=== PATIENT | male | born 1995 | race Caucasian/White ===

== ENCOUNTER 2017-07-06 15:11 | Emergency (ER) | payer OTHER ==
[2017-07-06 15:24] VITALS: PULSE 100
--- NOTE | 2017-07-06 15:44 | ERPHSYRPT ---
- History of Present Illness Time Seen by Provider: 07/06/17 15:17 Source: patient, family (brother and father) Patient Subjective Stated Complaint: Seizure, witnessed. Father states "at least 10 minutes long." Hx of same. Triage Nursing Assessment: Pt presents to the ED with complaints of seizure like activity per family. Pt states that he does not remember incident. Father states that pt has hx of complaint. Prescribed Keppra but not taking as ordered because he states "it doesn't work." No distress noted, skin pwd. Physician History: CC: Seizure Hx: 21 y/o patient had febrile seizures as a child. About one year ago began having seizures again. PT and family are poor historians but it appears he went to [place] [facility] for seizures about one year ago. Had Rx for keppra. Has not seen any neurologist. Has an insurance card with Dr Nilton villegas but doesn't plan to follow up there. His father plans to follow up with Dr Floyd. Today while sitting at the kitchen table he stiffened up, began making guttoral sounds, and then had shaking general movements with a seizure. Dad kept him from falling. No injury. He has Rx for keppra but apparently has not been taking it. It has not been filled for a while. Brother states he has periodic seizures. He thinks smoking marijuana helps the seizures. Pt did not smoke marijuana today. Unable to work because of the seizures. Pt denies pain. No fall or injury. Allergies/Adverse Reactions: No Known Drug Allergies Allergy (Unverified 07/06/17 15:28) Home Medications: Levetiracetam [Levetiracetam] 750 mg PO BID 07/06/17 [History] Immunizations Up to Date: No - Review of Systems Constitutional: No Fever Eyes: No Vision Changes Respiratory: No Dyspnea Cardiac: No Chest Pain Abdominal/Gastrointestinal: No Abdominal Pain, No Vomiting Musculoskeletal: No Back Pain, No Neck Pain, No Injury Skin: No Rash Neurological: Seizure, No Focal Weakness, No Headache, No Parasthesia All Other Systems: Reviewed and Negative - Past Medical History Pertinent Past Medical History: No Neurological History: Seizures ENT History: No Pertinent History Cardiac History: No Pertinent History Respiratory History: No Pertinent History Endocrine Medical History: No Pertinent History Musculoskeletal History: No Pertinent History GI Medical History: No Pertinent History History: No Pertinent History Psycho-Social History: No Pertinent History Male Reproductive Disorders: No Pertinent History - Past Surgical History Past Surgical History: No Neuro Surgical History: No Pertinent History Cardiac: No Pertinent History Respiratory: No Pertinent History Gastrointestinal: No Pertinent History Genitourinary: No Pertinent History Musculoskeletal: No Pertinent History Male Surgical History: No Pertinent History - Social History Smoking Status: Current every day smoker How long have you smoked: 5 years Exposure to second hand smoke: Yes Drug Use: marijuana Patient Lives Alone: No - Nursing Vital Signs Nursing Vital Signs: Initial Vital Signs Temperature 97.9 F 07/06/17 15:18 Pulse Rate 100 H 07/06/17 15:18 Respiratory Rate 16 07/06/17 15:18 Blood Pressure 138/69 07/06/17 15:18 O2 Sat by Pulse Oximetry 95 07/06/17 15:18 Pain Scale Pain Intensity 0 - Lawanda Coma Scale Best Eye Response ([place]): (4) open spontaneously Best Verbal Response ([place]): (5) oriented Best Motor Response ([place]): (6) obeys commands [place] Total: 15 - Physical Exam General Appearance: alert Eye Exam: bilateral eye: normal inspection, PERRL, EOMI Ears, Nose, Throat Exam: normal ENT inspection, moist mucous membranes Neck Exam: normal inspection, non-tender, supple, No midline tenderness Respiratory: normal breath sounds, lungs clear Cardiovascular: regular rate/rhythm, No murmur Gastrointestinal: soft, No tenderness, No distention Male Genitalia: normal genitalia Extremity Exam: normal inspection, normal range of motion 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, 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 x 3, 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 Exam: normal hearing, normal speech, PERRL Coordination/Gait: normal cerebellar function Motor/Sensory: no motor deficit, no sensory deficit, no pronator drift Skin Exam: warm, dry, No rash SpO2 Interpretation: normal SpO2: 95 Oxygen Delivery: Room Air - Course Nursing assessment & vital signs reviewed: Yes Ordered Tests: Active Orders 24 hr Category Date Time Status Clean Catch Urine Specimen STAT Care 07/06/17 15:34 Active CBC W DIFF Stat Lab 07/06/17 15:40 Completed CK-Creatinine Phosphokinase Stat Lab 07/06/17 16:04 Completed CMP Stat Lab 07/06/17 15:40 Completed CULTURE,URINE Stat Lab 07/06/17 16:15 Received UA W/ MICROSCOPIC Stat Lab 07/06/17 16:15 Completed Urine Triage Profile Stat Lab 07/06/17 16:15 Completed Lab/Rad Data: Laboratory Result Diagrams 07/06/17 15:40 07/06/17 15:40 Laboratory Results 07/06/17 07/06/17 07/06/17 Range/Units 16:15 16:15 16:04 WBC (4.0-10.5) K/mm3 RBC (4.1-5.6) M/mm3 Hgb (12.5-18.0) gm/dl Hct (42-50) % MCV (78-100) fl MCH (26-32) pg MCHC (32-36) g/dl RDW (11.5-14.0) % Plt Count (150-450) K/mm3 MPV (6-9.5) fl Gran % (36.0-66.0) % Eos # (Auto) (0-0.5) Absolute Lymphs (auto) (1.0-4.6) Absolute Monos (auto) (0.0-1.3) Lymphocytes % (24.0-44.0) % Monocytes % (0.0-12.0) % Eosinophils % (0.00-5.0) % Basophils % (0.0-0.4) % Absolute Granulocytes (1.4-6.9) Basophils # (0-0.4) Sodium (137-145) mmol/L Potassium (3.5-5.1) mmol/L Chloride (98-107) mmol/L Carbon Dioxide (22-30) mmol/L Anion Gap (5-15) MEQ/L BUN (9-20) mg/dL Creatinine (0.66-1.25) mg/dL Estimated GFR ML/MIN Glucose (74-106) mg/dL Calcium (8.4-10.2) mg/dL Total Bilirubin (0.2-1.3) mg/dL AST (17-59) U/L ALT (0-50) U/L Alkaline Phosphatase (38-126) U/L Creatine Kinase 113 (55-170) U/L Serum Total Protein (6.3-8.2) g/dL Albumin (3.5-5.0) g/dL Ur Collection Type VOID Urine Color YELLOW (YELLOW) Urine Appearance CLEAR (CLEAR) Urine pH 7.0 (5-6) Ur Specific [place] 1.010 (1.005-1.025) Urine Protein TRACE (Negative) Urine Ketones NEGATIVE (NEGATIVE) Urine Blood NEGATIVE (0-5) Carson/ul Urine Nitrite NEGATIVE (NEGATIVE) Urine Bilirubin NEGATIVE (NEGATIVE) Urine Urobilinogen NORMAL (0-1) mg/dL Ur Leukocyte Esterase TRACE (NEGATIVE) Urine Microscopic WBC 0-2 (0-5) /HPF Ur Epithelial Cells RARE (FEW) /HPF Urine Bacteria RARE (NEGATIVE) /HPF Urine Culture Reflexed YES (NO) Urine Glucose NEGATIVE (NEGATIVE) mg/dL Urine Opiates Level NEGATIVE (NEGATIVE) Ur Methadone NEGATIVE (NEGATIVE) Urine Barbiturates NEGATIVE (NEGATIVE) Ur Phencyclidine (PCP) NEGATIVE (NEGATIVE) Urine Amphetamine NEGATIVE (NEGATIVE) U Benzodiazepine Level NEGATIVE (NEGATIVE) Urine Cocaine NEGATIVE (NEGATIVE) Urine Marijuana (THC) POSITIVE (NEGATIVE) Specimen Received 07/06/17 1615 07/06/17 07/06/17 Range/Units 15:40 15:40 WBC 7.9 (4.0-10.5) K/mm3 RBC 5.23 (4.1-5.6) M/mm3 Hgb 15.8 (12.5-18.0) gm/dl Hct 46.7 (42-50) % MCV 89.3 (78-100) fl MCH 30.2 (26-32) pg MCHC 33.8 (32-36) g/dl RDW 13.3 (11.5-14.0) % Plt Count 153 (150-450) K/mm3 MPV 11.1 H (6-9.5) fl Gran % 84.9 H (36.0-66.0) % Eos # (Auto) 0.09 (0-0.5) Absolute Lymphs (auto) 0.78 L (1.0-4.6) Absolute Monos (auto) 0.30 (0.0-1.3) Lymphocytes % 9.9 L (24.0-44.0) % Monocytes % 3.8 (0.0-12.0) % Eosinophils % 1.1 (0.00-5.0) % Basophils % 0.3 (0.0-0.4) % Absolute Granulocytes 6.69 (1.4-6.9) Basophils # 0.02 (0-0.4) Sodium 142 (137-145) mmol/L Potassium 4.3 (3.5-5.1) mmol/L Chloride 106 (98-107) mmol/L Carbon Dioxide 26 (22-30) mmol/L Anion Gap 14.5 (5-15) MEQ/L BUN 8 L (9-20) mg/dL Creatinine 0.87 (0.66-1.25) mg/dL Estimated GFR > 60.0 ML/MIN Glucose 82 (74-106) mg/dL Calcium 9.4 (8.4-10.2) mg/dL Total Bilirubin 0.80 (0.2-1.3) mg/dL AST 22 (17-59) U/L ALT 22 (0-50) U/L Alkaline Phosphatase 66 (38-126) U/L Creatine Kinase (55-170) U/L Serum Total Protein 7.3 (6.3-8.2) g/dL Albumin 4.6 (3.5-5.0) g/dL Ur Collection Type Urine Color (YELLOW) Urine Appearance (CLEAR) Urine pH (5-6) Ur Specific [place] (1.005-1.025) Urine Protein (Negative) Urine Ketones (NEGATIVE) Urine Blood (0-5) Carson/ul Urine Nitrite (NEGATIVE) Urine Bilirubin (NEGATIVE) Urine Urobilinogen (0-1) mg/dL Ur Leukocyte Esterase (NEGATIVE) Urine Microscopic WBC (0-5) /HPF Ur Epithelial Cells (FEW) /HPF Urine Bacteria (NEGATIVE) /HPF Urine Culture Reflexed (NO) Urine Glucose (NEGATIVE) mg/dL Urine Opiates Level (NEGATIVE) Ur Methadone (NEGATIVE) Urine Barbiturates (NEGATIVE) Ur Phencyclidine (PCP) (NEGATIVE) Urine Amphetamine (NEGATIVE) U Benzodiazepine Level (NEGATIVE) Urine Cocaine (NEGATIVE) Urine Marijuana (THC) (NEGATIVE) Specimen Received - Progress Progress Note: 07/06/17 16:02 Reviewed old records from [place]. In September and October [address] heads wnl, MRI brain wnl, EEG normal. Neuro consultation with Dr Sosa who diagnosed epilepsy with complex partial seizures. He also had IV drug abuse and marijuana abuse listed. 07/06/17 16:59 Nothing abberant on labs. Reviewed labs and old records with pt. He is no longer on keppra and does not want to be. Father called to change primary medicaid to Dr Floyd and they plan to follow up there. Will not restart meds at this time as pt has not been compliant and had normal EEG. He needs neurology follow up. Seizure instructions given. Counseled pt/family regarding: lab results, diagnosis, need for follow-up - Departure Time of Disposition: 17:00 Departure Disposition: Home Clinical Impression: Epileptic seizure Qualifiers: Epilepsy type: unspecified Intractability: not intractable Status epilepticus: without status epilepticus Qualified Code(s): G40.909 - Epilepsy, unspecified, not intractable, without status epilepticus Condition: Stable Critical Care Time: No Referrals: SUSAN FLOYD [Primary Care Provider] - Instructions: Seizures, Adult (DC) Additional Instructions: No driving, climbing, swimming, hot tubs, operating machinery. Follow up with Dr Floyd or primary doctor and arrange neurology follow up to consider other seizure medications. Return for problems or concerns. Stay with family today.
[2017-07-06 15:50] LABS: BASOPHIL % 0.3 % (0.0-0.4); Basophil (Absolute #) 0.02 (0-0.4); Eosinophil % 1.1 % (0.00-5.0); Eosinophil (Absolute #) 0.09 (0-0.5); Granulocyte Absolute (ANC) 6.69 (1.4-6.9); Granulocytes % 84.9 % (36.0-66.0); Hematocrit 46.7 % (42-50); Hemoglobin 15.8 gm/dl (12.5-18.0); Lymphocyte (Absolute #) 0.78 (1.0-4.6); Lymphocytes % 9.9 % (24.0-44.0); Mean Cell Volume 89.3 fl (78-100); Mean Corpuscular Hemoglobin 30.2 pg (26-32); Mean Corpuscular Hgb Concent. 33.8 g/dl (32-36); Mean Platelet Volume 11.1 fl (6-9.5); Monocytes % 3.8 % (0.0-12.0); Platelet Count 153 K/mm3 (150-450); Red Blood Count 5.23 M/mm3 (4.1-5.6); Red Cell Distribution Width 13.3 % (11.5-14.0); White Blood Count 7.9 K/mm3 (4.0-10.5)
[2017-07-06 16:10] VITALS: BP 131/84
[2017-07-06 16:20] LABS: ALBUMIN 4.6 g/dL (3.5-5.0); ALKALINE PHOSPHATASE 66 U/L (38-126); ANION GAP 14.5 MEQ/L (5-15); BLOOD UREA NITROGEN 8 mg/dL (9-20); CHLORIDE 106 mmol/L (98-107); Calcium 9.4 mg/dL (8.4-10.2); Carbon Dioxide 26 mmol/L (22-30); Creatinine 1 0.87 mg/dL (0.66-1.25); Glucose 82 mg/dL (74-106); Potassium 4.3 mmol/L (3.5-5.1); SGOT/AST 22 U/L (17-59); SGPT/ALT 22 U/L (0-50); SODIUM 142 mmol/L (137-145); Total Protein 7.3 g/dL (6.3-8.2)
[2017-07-06 16:29] LABS: Appearance CLEAR (CLEAR); Bilirubin NEGATIVE (NEGATIVE); Blood NEGATIVE Ery/ul (0-5); Glucose NEGATIVE (NEGATIVE); Ketones NEGATIVE (NEGATIVE); Leukocyte Esterase TRACE (NEGATIVE); Nitrite NEGATIVE (NEGATIVE); Protein,Urine Dip TRACE (Negative); Urobilinogen NORMAL mg/dL (0-1)
[2017-07-06 16:30] LABS: Bacteria RARE /HPF (NEGATIVE); Epithelial Cells RARE /HPF (FEW); WBC 0-2 /HPF (0-5)
[2017-07-06 16:39] LABS: Amphetamine,Urine NEGATIVE (NEGATIVE); Barbiturate,Urine NEGATIVE (NEGATIVE); Benzodiazepine,Urine NEGATIVE (NEGATIVE); Cocaine,Urine NEGATIVE (NEGATIVE); Methadone,Urine NEGATIVE (NEGATIVE); Opiate,Urine NEGATIVE (NEGATIVE); PCP,Urine NEGATIVE (NEGATIVE); THC,Urine POSITIVE (NEGATIVE)
[2017-07-06 17:01] VITALS: O2SAT 95
== END 2017-07-06 17:23 | disposition home or self-care (01) ==
LOC: ED 15:11
DX: G40.909 Epilepsy, unspecified, not intractable, without status epilepticus (principal)
CPT/HCPCS: 36415; 80053; 80307; 81000; 82550; 85025; 87086; 99282; 99283

== ENCOUNTER 2022-03-03 09:37 | Emergency (ER) | payer OTHER ==
[2022-03-03] MEDS ORDERED: Keppra 500 MG/5 ML*** 1,000 MG in D5w 100ML Mini Bag 100 ML 100 ML IV ONE (10:08)
[2022-03-03] MEDS ORDERED: Sodium Chloride 0.9% 1000 ML 1,000 ML IV STA (10:09)
[2022-03-03 10:38] LABS: Absolute Neutrophil Ct (ANC) 5.84 x10^3/uL (1.4-6.9); Basophil (Absolute #) 0.05 x10^3/uL (0-0.4); Eosinophil % 1.5 % (0.00-5.0); Eosinophil (Absolute #) 0.12 x10^3/uL (0-0.5); Hematocrit 47.7 % (42-50); Hemoglobin 15.8 g/dL (12.5-18.0); Lymphocyte (Absolute #) 1.24 x10^3/uL (1.0-4.6); Lymphocytes % 15.4 % (24.0-44.0); Mean Cell Volume 91.4 fL (78-100); Mean Corpuscular Hemoglobin 30.3 pg (26-32); Mean Corpuscular Hgb Concent. 33.1 g/dL (32-36); Mean Platelet Volume 10.9 fL (7.5-11.0); Monocyte (Absolute #) 0.76 x10^3/uL (0.0-1.3); Monocytes % 9.5 % (0.0-12.0); Neutrophil % 72.6 % (36.0-66.0); Platelet Count 154 x10^3/uL (150-450); Red Blood Count 5.22 x10^6/uL (4.1-5.6); Red Cell Distribution Width 13.1 % (11.5-14.0)
[2022-03-03 10:47] LABS: ALBUMIN 4.5 g/dL (3.5-5.0); ALKALINE PHOSPHATASE 70 U/L (38-126); ANION GAP 12.2 MEQ/L (5-15); BLOOD UREA NITROGEN 14 mg/dL (9-20); CHLORIDE 107 mmol/L (98-107); Calcium 8.7 mg/dL (8.4-10.2); Carbon Dioxide 24 mmol/L (22-30); Creatinine 1 0.92 mg/dL (0.66-1.25); EST GLOMERULAR FILTRATION RATE > 60.0 ML/MIN; Glucose 104 mg/dL (74-106); Potassium 3.9 mmol/L (3.5-5.1); SGOT/AST 32 U/L (17-59); SGPT/ALT 18 U/L (0-50); SODIUM 140 mmol/L (137-145); Total Protein 7.1 g/dL (6.3-8.2)
--- NOTE | 2022-03-03 11:05 | XRAY ---
Indication: Seizure. History seizures. Multiple contiguous axial images obtained through the head without contrast. Comparison: None Normal appearing brain parenchyma, ventricles, and bony calvarium. Visualized paranasal sinuses and mastoid air cells are clear. Incidental deformed left orbit with macrocalcifications. Impression: Normal CT head without contrast exam.
[2022-03-03] MEDS ORDERED: Sodium Chloride 0.9% 1000 ML 1,000 ML ONE (11:11)
--- NOTE | 2022-03-03 12:03 | ERPHSYRPT ---
- History of Present Illness Time Seen by Provider: 03/03/22 10:15 Source: patient Exam Limitations: no limitations Patient Subjective Stated Complaint: Patient had a seizure earlier this morning. Triage Nursing Assessment: Patient ambulated back to ED without difficulties; steady gait. He is alert and oriented. Left eye noted to be almost opaque but this is normal for patient; had a surgery to this eye as a child and this is his normal appearance since that time. Side rails to bed have been padded for seizure precaution. Patient has not taken his seizure medication in almost a month, he states he ran out and can't get it refilled. He is unsure of the name of the neurologist who prescribed it and his family doctor recently retired. Physician History: Patient is a 26-year-old male with a long history of seizure disorder who has been off of medicine for 6 months. He normally is on Keppra. He at one time was on Vimpat but that was stopped. He says he has been having bad seizures sometimes more than once a day. Severity: moderate Baseline/Normal Cognition: alert oriented x 3 Current Cognition: alert oriented x 3 Associated Symptoms: seizures Allergies/Adverse Reactions: No Known Drug Allergies Allergy (Verified 03/03/22 10:03) Home Medications: Lacosamide [Vimpat] 1 tab PO BID 03/03/22 [History] Hx Tetanus, Diphtheria Vaccination/Date Given: Yes Hx Influenza Vaccination/Date Given: Yes Immunizations Up to Date: Yes Travel Risk - International Travel Have you traveled outside of the country in past 3 weeks: No - Coronavirus Screening Are you exhibiting any of the following symptoms?: No Close contact with a COVID-19 positive Pt in past 14-21 Days: No - Vaccine Status Have you recieved a Covid-19 vaccination: Yes 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 - Review of Systems Constitutional: No Fever, No Chills Eyes: No Symptoms Ears, Nose, & Throat: No Symptoms Respiratory: No Cough, No Dyspnea Cardiac: No Chest Pain, No Edema, No Syncope Abdominal/Gastrointestinal: No Abdominal Pain, No Nausea, No Vomiting, No Diarrhea Genitourinary Symptoms: No Dysuria Musculoskeletal: No Back Pain, No Neck Pain Skin: No Rash Neurological: Seizure, No Dizziness, No Focal Weakness, No Sensory Changes Psychological: No Symptoms Endocrine: No Symptoms All Other Systems: Reviewed and Negative - Past Medical History Pertinent Past Medical History: No Neurological History: Seizures ENT History: No Pertinent History Cardiac History: No Pertinent History Respiratory History: No Pertinent History Endocrine Medical History: No Pertinent History Musculoskeletal History: No Pertinent History GI Medical History: No Pertinent History History: No Pertinent History Psycho-Social History: No Pertinent History Male Reproductive Disorders: No Pertinent History - Past Surgical History Past Surgical History: No Neuro Surgical History: No Pertinent History Cardiac: No Pertinent History Respiratory: No Pertinent History Gastrointestinal: No Pertinent History Genitourinary: No Pertinent History Musculoskeletal: No Pertinent History Male Surgical History: No Pertinent History Other Surgical History: Had a procedure to his left eye as a child but is unsure of the name of the procedure - Social History Smoking Status: Current every day smoker How long have you smoked: 9 years Exposure to second hand smoke: Yes Drug Use: marijuana Patient Lives Alone: No - Nursing Vital Signs Nursing Vital Signs: Initial Vital Signs Temperature 98 F 03/03/22 10:06 Pulse Rate 85 03/03/22 10:06 Respiratory Rate 17 03/03/22 10:06 Blood Pressure 137/74 03/03/22 10:06 O2 Sat by Pulse Oximetry 98 03/03/22 10:06 Pain Scale Pain Intensity 0 - Lawanda Coma Scale Best Eye Response ([place]): (4) open spontaneously Best Verbal Response ([place]): (5) oriented Best Motor Response ([place]): (6) obeys commands [place] Total: 15 - Physical Exam General Appearance: no apparent distress Eye Exam: bilateral eye: PERRL, EOMI Ears, Nose, Throat Exam: normal ENT inspection, moist mucous membranes Neck Exam: normal inspection, non-tender, supple Respiratory: normal breath sounds, lungs clear, airway intact, No respiratory distress Cardiovascular: regular rate/rhythm, No edema Gastrointestinal: soft, No tenderness, No distention Back Exam: normal inspection Extremity Exam: normal inspection, No pedal edema 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, 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 Exam: tongue midline Coordination/Gait: normal finger to nose, normal gait Skin Exam: normal color, warm, dry, No rash SpO2 Interpretation: normal SpO2: 98 O2 Delivery: Room Air - Course Nursing assessment & vital signs reviewed: Yes - CT Exams Head CT Interpretation: Negative Ordered Tests: Active Orders 24 hr Category Date Time Status IV Insertion STAT Care 03/03/22 10:09 Active HEAD WITHOUT CONTRAST [CT] Stat Exams 03/03/22 10:49 Completed CBC W DIFF Stat Lab 03/03/22 10:25 Completed CMP Stat Lab 03/03/22 10:25 Completed Lactic Acid Stat Lab 03/03/22 10:31 Completed UA W/RFX CULTURE Stat Lab 03/03/22 Ordered Urine Triage Profile Stat Lab 03/03/22 10:10 Ordered Medication Summary Discontinued Medications Generic Name Dose Route Start Last Admin Trade Name Freq PRN Reason Stop Dose Admin Levetiracetam 1,000 mg/ 110 mls @ 220 mls/hr 03/03/22 10:08 03/03/22 11:31 Dextrose IV 03/03/22 10:37 220 mls/hr STAT ONE Administration Sodium Chloride 1,000 mls @ 999 mls/hr 03/03/22 10:09 03/03/22 11:29 Sodium Chloride 0.9% 1000 Ml IV 03/03/22 11:09 999 mls/hr .[id number] STA Administration Sodium Chloride Confirm 03/03/22 11:11 Sodium Chloride 0.9% 1000 Ml Administered 03/03/22 11:12 Dose 1,000 mls @ ud .ROUTE .STK-MED ONE Lab/Rad Data: Laboratory Result Diagrams 03/03/22 10:25 03/03/22 10:25 Laboratory Results 03/03/22 03/03/22 03/03/22 Range/Units 10:31 10:25 10:25 WBC 8.0 (4.0-10.5) x10^3/uL RBC 5.22 (4.1-5.6) x10^6/uL Hgb 15.8 (12.5-18.0) g/dL Hct 47.7 (42-50) % MCV 91.4 (78-100) fL MCH 30.3 (26-32) pg MCHC 33.1 (32-36) g/dL RDW 13.1 (11.5-14.0) % Plt Count 154 (150-450) x10^3/uL MPV 10.9 (7.5-11.0) fL Gran % 72.6 H (36.0-66.0) % Immature Gran % (Auto) 0.4 (0.00-0.4) % Nucleat RBC Rel Count 0.0 (0.00-0.1) % Eos # (Auto) 0.12 (0-0.5) x10^3/uL Immature Gran # (Auto) 0.03 (0.00-0.03) x10^3u/L Absolute Lymphs (auto) 1.24 (1.0-4.6) x10^3/uL Absolute Monos (auto) 0.76 (0.0-1.3) x10^3/uL Absolute Nucleated RBC 0.00 (0.00-0.01) x10^3u/L Lymphocytes % 15.4 L (24.0-44.0) % Monocytes % 9.5 (0.0-12.0) % Eosinophils % 1.5 (0.00-5.0) % Basophils % 0.6 (0.0-0.4) % Absolute Granulocytes 5.84 (1.4-6.9) x10^3/uL Basophils # 0.05 (0-0.4) x10^3/uL Sodium 140 (137-145) mmol/L Potassium 3.9 (3.5-5.1) mmol/L Chloride 107 (98-107) mmol/L Carbon Dioxide 24 (22-30) mmol/L Anion Gap 12.2 (5-15) MEQ/L BUN 14 (9-20) mg/dL Creatinine 0.92 (0.66-1.25) mg/dL Estimated GFR > 60.0 ML/MIN Glucose 104 (74-106) mg/dL Lactic Acid 0.7 (0.4-2.0) Calcium 8.7 (8.4-10.2) mg/dL Total Bilirubin 1.00 (0.2-1.3) mg/dL AST 32 (17-59) U/L ALT 18 (0-50) U/L Alkaline Phosphatase 70 (38-126) U/L Serum Total Protein 7.1 (6.3-8.2) g/dL Albumin 4.5 (3.5-5.0) g/dL - Progress Progress: improved - Departure Departure Disposition: Home Clinical Impression: Epileptic seizure Condition: Stable Critical Care Time: No Referrals: SUSAN COPELAND [Primary Care Provider] - Follow up/PCP as directed Instructions: Seizures, Adult (DC) Prescriptions: Levetiracetam [Keppra] 2 tab PO BID 30 Days #120 tablet
[2022-03-03 12:16] VITALS: BP 115/57; PULSE 78; O2SAT 100
== END 2022-03-03 12:46 | disposition home or self-care (01) ==
LOC: ED 09:37
DX: G40.909 Epilepsy, unspecified, not intractable, without status epilepticus (principal); Z72.0 Tobacco use; Z79.899 Other long term (current) drug therapy
CPT/HCPCS: 36000; 36415; 70450; 80053; 83605; 84146; 85025; 96365; 99284; J1953

== ENCOUNTER 2022-08-25 23:00 | Emergency (ER) | payer OTHER ==
--- NOTE | 2022-08-25 23:19 | ERPHSYRPT ---
- History of Present Illness Patient Subjective Stated Complaint: had seizure at the custodial Triage Nursing Assessment: pt brought in by ambulance BLS for a seizure at the custodial this evening. Officer is unsure how long the seizure lasted as he did not witness it. Pt is alert and oriented x4, cooperative. Pt denies any pain and states, "I'm feel fine right now". Pt is legally blind in his left eye. Physician History: 27-year-old male past medical history of epilepsy presents to the ER with a seizure that occurred earlier today. Patient is accompanied by a officer who reports that patient was witnessed by a camera and roommate to have a generalized tonic-clonic seizure. Seizure was noted to be about 2 to 3 minutes long. Patient reports being postictal as he only remembers being in the ambulance. Reports he has not seen a neurologist in a few years. Reports taking Keppra 1500 mg twice daily. Denies of losing control of bowel or bladder during seizure. Denies having any headaches, lightheadedness, weakness, nausea/vomiting or diarrhea. 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 - Review of Systems Constitutional: No Fever, No Chills Eyes: No Symptoms Ears, Nose, & Throat: No Symptoms Respiratory: No Cough, No Dyspnea Cardiac: No Chest Pain, No Edema, No Syncope Abdominal/Gastrointestinal: No Abdominal Pain, No Nausea, No Vomiting, No Diarrhea Genitourinary Symptoms: No Dysuria Musculoskeletal: No Back Pain, No Neck Pain Skin: No Rash Neurological: Seizure, No Dizziness, No Focal Weakness, No Sensory Changes Psychological: No Symptoms Endocrine: No Symptoms All Other Systems: Reviewed and Negative - Past Medical History Pertinent Past Medical History: Yes Neurological History: Epilepsy, Seizures ENT History: No Pertinent History Cardiac History: No Pertinent History Respiratory History: No Pertinent History Endocrine Medical History: No Pertinent History Musculoskeletal History: No Pertinent History GI Medical History: No Pertinent History History: No Pertinent History Psycho-Social History: No Pertinent History Male Reproductive Disorders: No Pertinent History - Past Surgical History Past Surgical History: No Neuro Surgical History: No Pertinent History Cardiac: No Pertinent History Respiratory: No Pertinent History Gastrointestinal: No Pertinent History Genitourinary: No Pertinent History Musculoskeletal: No Pertinent History Male Surgical History: No Pertinent History Other Surgical History: Had a procedure to his left eye as a child but is unsure of the name of the procedure - Social History Smoking Status: Former smoker How long have you smoked: 9 years Exposure to second hand smoke: No Drug Use: none Patient Lives Alone: No (custodial) - Nursing Vital Signs Nursing Vital Signs: Initial Vital Signs Temperature 97.7 F 08/25/22 23:01 Pulse Rate 97 H 08/25/22 23:01 Respiratory Rate 18 08/25/22 23:01 Blood Pressure 125/71 08/25/22 23:01 O2 Sat by Pulse Oximetry 100 08/25/22 23:01 Pain Scale Pain Intensity 0 - Physical Exam General Appearance: no apparent distress, alert Eye Exam: PERRL/EOMI, other (Left eye noted to be cloudy patient reports loss of vision in that eye.) Ears, Nose, Throat Exam: normal ENT inspection, TMs normal, pharynx normal, moist mucous membranes Neck Exam: normal inspection, non-tender, supple, full range of motion Respiratory Exam: normal breath sounds, lungs clear, No respiratory distress Cardiovascular Exam: regular rate/rhythm, normal heart sounds, normal peripheral pulses Gastrointestinal/Abdomen Exam: soft, normal bowel sounds, No tenderness, No mass Back Exam: normal inspection, normal range of motion, No CVA tenderness, No vertebral tenderness Extremity Exam: normal inspection, normal range of motion, pelvis stable Neurologic Exam: alert, oriented x 3, cooperative, academic affairs vice president II-XII nml as tested, normal mood/affect, nml cerebellar function, nml station & gait, sensation nml, No motor deficits Skin Exam: normal color, warm, dry, No rash Lymphatic Exam: No adenopathy SpO2 Interpretation: normal SpO2: 100 O2 Delivery: Room Air Ordered Tests: Active Orders 24 hr Category Date Time Status EKG-ER Only STAT Care 08/25/22 23:22 Active NPO (ED) STAT Care 08/25/22 23:23 Active Pulse Oximetry (ED) STAT Care 08/25/22 23:23 Active Re-Check Vital Signs STAT Care 08/25/22 23:23 Active Seizure Precautions -SCCHED STAT Care 08/25/22 23:23 Active HEAD WITHOUT CONTRAST [CT] Stat Exams 08/25/22 23:49 Completed CBC W DIFF Stat Lab 08/25/22 23:29 Completed CMP Stat Lab 08/25/22 23:29 Completed TROPONIN Q4H Lab 08/25/22 23:29 Completed Lab/Rad Data: Laboratory Result Diagrams 08/25/22 23:29 08/25/22 23:29 Laboratory Results 08/25/22 08/25/22 08/25/22 Range/Units 23:29 23:29 23:29 WBC 6.8 (4.0-10.5) x10^3/uL RBC 5.24 (4.1-5.6) x10^6/uL Hgb 15.7 (12.5-18.0) g/dL Hct 47.9 (42-50) % MCV 91.4 (78-100) fL MCH 30.0 (26-32) pg MCHC 32.8 (32-36) g/dL RDW 12.4 (11.5-14.0) % Plt Count 158 (150-450) x10^3/uL MPV 11.3 H (7.5-11.0) fL Gran % 57.2 (36.0-66.0) % Immature Gran % (Auto) 0.3 (0.00-0.4) % Nucleat RBC Rel Count 0.0 (0.00-0.1) % Eos # (Auto) 0.21 (0-0.5) x10^3/uL Immature Gran # (Auto) 0.02 (0.00-0.03) x10^3u/L Absolute Lymphs (auto) 2.10 (1.0-4.6) x10^3/uL Absolute Monos (auto) 0.47 (0.0-1.3) x10^3/uL Absolute Nucleated RBC 0.00 (0.00-0.01) x10^3u/L Lymphocytes % 31.1 (24.0-44.0) % Monocytes % 7.0 (0.0-12.0) % Eosinophils % 3.1 (0.00-5.0) % Basophils % 1.3 (0.0-0.4) % Absolute Granulocytes 3.86 (1.4-6.9) x10^3/uL Basophils # 0.09 (0-0.4) x10^3/uL Sodium 140 (137-145) mmol/L Potassium 4.3 (3.5-5.1) mmol/L Chloride 101 (98-107) mmol/L Carbon Dioxide 19 L (22-30) mmol/L Anion Gap 25.1 H (5-15) MEQ/L BUN 22 H (9-20) mg/dL Creatinine 1.12 (0.66-1.25) mg/dL Estimated GFR > 60.0 ML/MIN Glucose 85 (74-106) mg/dL Calcium 9.1 (8.4-10.2) mg/dL Total Bilirubin 0.80 (0.2-1.3) mg/dL AST 27 (17-59) U/L ALT 21 (0-50) U/L Alkaline Phosphatase 70 (38-126) U/L Troponin I < 0.012 (0.000-0.034) ng/mL Serum Total Protein 8.0 (6.3-8.2) g/dL Albumin 5.0 (3.5-5.0) g/dL - Progress Progress: improved Progress Note: 08/26/22 00:52 27-year-old male presented for seizure. History of epilepsy patient's been taking Keppra 1500 twice daily. CBC, BMP, EKG and troponin all within normal range. CT head which shows no acute intracranial abnormality. Advised patient that he needs to have a follow-up with a neurologist to have adjustment of his current seizure medication. Patient verbalized understanding. Advised patient to keep well-hydrated. Patient should have a follow-up with primary care doctor in 1 to 2 weeks. Will see patient in: office Counseled pt/family regarding: lab results, diagnosis, need for follow-up, rad results - Departure Departure Disposition: Shelter/Residential Clinical Impression: Seizure, Epileptic seizure Condition: Stable Critical Care Time: No Referrals: SUSAN COPELAND [Primary Care Provider] - Follow up/PCP as directed Additional Instructions: Highly recommend patient having a follow-up with a neurologist in the next 2 to 4 weeks, patient would benefit from monitoring of his medication and changes that would control his epilepsy better.
[2022-08-25 23:32] LABS: Absolute Neutrophil Ct (ANC) 3.86 x10^3/uL (1.4-6.9); BASOPHIL % 1.3 % (0.0-0.4); Basophil (Absolute #) 0.09 x10^3/uL (0-0.4); Eosinophil % 3.1 % (0.00-5.0); Eosinophil (Absolute #) 0.21 x10^3/uL (0-0.5); Hematocrit 47.9 % (42-50); Hemoglobin 15.7 g/dL (12.5-18.0); IMMATURE GRAN # 0.02 x10^3u/L (0.00-0.03); IMMATURE GRAN % 0.3 % (0.00-0.4); Lymphocytes % 31.1 % (24.0-44.0); Mean Cell Volume 91.4 fL (78-100); Mean Corpuscular Hgb Concent. 32.8 g/dL (32-36); Mean Platelet Volume 11.3 fL (7.5-11.0); Monocyte (Absolute #) 0.47 x10^3/uL (0.0-1.3); Neutrophil % 57.2 % (36.0-66.0); Platelet Count 158 x10^3/uL (150-450); Red Blood Count 5.24 x10^6/uL (4.1-5.6); Red Cell Distribution Width 12.4 % (11.5-14.0); White Blood Count 6.8 x10^3/uL (4.0-10.5)
[2022-08-25 23:45] LABS: ALKALINE PHOSPHATASE 70 U/L (38-126); ANION GAP 25.1 MEQ/L (5-15); BLOOD UREA NITROGEN 22 mg/dL (9-20); CHLORIDE 101 mmol/L (98-107); Calcium 9.1 mg/dL (8.4-10.2); Carbon Dioxide 19 mmol/L (22-30); Creatinine 1 1.12 mg/dL (0.66-1.25); EST GLOMERULAR FILTRATION RATE > 60.0 ML/MIN; Glucose 85 mg/dL (74-106); Potassium 4.3 mmol/L (3.5-5.1); SGOT/AST 27 U/L (17-59); SGPT/ALT 21 U/L (0-50); SODIUM 140 mmol/L (137-145)
--- NOTE | 2022-08-26 00:28 | XRAY ---
CLINICAL HISTORY:seizure COMPARISON:None; TECHNIQUES:Contiguous, multislice, non-enhanced CT scan of the brain in the axial plane with multiplanar reconstructions; FINDINGS: Normal CT attenuation of both cerebral hemispheres with no areas of abnormal attenuation values. No suspicious space-occupying lesions. No intra or extra-axial collections of fresh blood density. Normal size and shape of the ventricles, basal cisterns, and cortical sulci. The basal ganglia, thalamus, and internal capsule appear normal. Brainstem and yuly appear normal. No shift of midline structures. Unremarkable posterior fossa. Largely preserved cranial calvarial bones. Visualized paranasal sinuses appear clear. 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 IMPRESSION: 1-No acute intracranial abnormality. 2-Stable appearance when compared with the prior study. Electronically Signed by: Tayler Raines MD. (08/25/2022 23:21:57 HOG MAN)
[2022-08-26 01:05] VITALS: BP 131/77; PULSE 78; O2SAT 99
== END 2022-08-26 01:10 | disposition home or self-care (01) ==
LOC: ED 23:00
DX: G40.909 Epilepsy, unspecified, not intractable, without status epilepticus (principal); Z79.899 Other long term (current) drug therapy
CPT/HCPCS: 36000; 36415; 70450; 80053; 84484; 85025; 93005; 94760; 99284

== ENCOUNTER 2022-09-09 18:12 | Emergency (ER) | payer OTHER ==
--- NOTE | 2022-09-09 18:15 | ERPHSYRPT ---
- History of Present Illness Time Seen by Provider: 09/09/22 18:14 Source: patient, police Exam Limitations: no limitations Physician History: This is a 27-year-old white male patient on Keppra treat seizure disorder and unknowingly to him he had a breakthrough seizure that was not witnessed. However he was found on the ground in his cell with a small laceration to the lateral aspect of his left eyebrow. Patient does not recall the events. He has no headache. He has no chest pain. He has no shortness of breath. He has no abdominal pain. Patient has been taking his medication as prescribed. Timing/Duration: today Quality: painful Severity: mild Location: face (Lateral aspect left eye 0.5 cm laceration that is well approximated) Associated Symptoms: denies symptoms Allergies/Adverse Reactions: No Known Drug Allergies Allergy (Verified 09/09/22 18:19) Hx Tetanus, Diphtheria Vaccination/Date Given: (unknown) Hx Influenza Vaccination/Date Given: Yes Hx Pneumococcal Vaccination/Date Given: No Travel Risk - International Travel Have you traveled outside of the country in past 3 weeks: No - Coronavirus Screening Are you exhibiting any of the following symptoms?: No Close contact with a COVID-19 positive Pt in past 14-21 Days: No - Vaccine Status Have you recieved a Covid-19 vaccination: Yes 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 - Review of Systems Constitutional: No Symptoms Eyes: No Symptoms Ears, Nose, & Throat: No Symptoms Respiratory: No Symptoms Cardiac: No Symptoms Abdominal/Gastrointestinal: No Symptoms Genitourinary Symptoms: No Symptoms Musculoskeletal: No Symptoms Skin: Other (Small 0.5 cm laceration lateral aspect left eyebrow well approximated) Neurological: Seizure Psychological: No Symptoms Endocrine: No Symptoms Hematologic/Lymphatic: No Symptoms Immunological/Allergic: No Symptoms All Other Systems: Reviewed and Negative - Past Medical History Pertinent Past Medical History: Yes Neurological History: Epilepsy, Seizures ENT History: No Pertinent History Cardiac History: No Pertinent History Respiratory History: No Pertinent History Endocrine Medical History: No Pertinent History Musculoskeletal History: No Pertinent History GI Medical History: No Pertinent History History: No Pertinent History Psycho-Social History: No Pertinent History Male Reproductive Disorders: No Pertinent History - Past Surgical History Past Surgical History: No Neuro Surgical History: No Pertinent History Cardiac: No Pertinent History Respiratory: No Pertinent History Gastrointestinal: No Pertinent History Genitourinary: No Pertinent History Musculoskeletal: No Pertinent History Male Surgical History: No Pertinent History Other Surgical History: Had a procedure to his left eye as a child but is unsure of the name of the procedure - Social History Smoking Status: Former smoker How long have you smoked: 9 years Exposure to second hand smoke: No Drug Use: none Patient Lives Alone: No (half-way) - Nursing Vital Signs Nursing Vital Signs: Initial Vital Signs Temperature 98.7 F 09/09/22 18:25 Pulse Rate 98 H 09/09/22 18:25 Respiratory Rate 18 09/09/22 18:25 Blood Pressure 143/83 09/09/22 18:25 O2 Sat by Pulse Oximetry 99 09/09/22 18:25 Pain Scale Pain Intensity 0 - Physical Exam General Appearance: no apparent distress, alert Eye Exam: PERRL/EOMI, other (Left eye has chronic changes. Just to the left of the lateral aspect of the left eyebrow there is a 0.5 cm laceration without evidence of foreign body or active bleeding. It is well approximated) Ears, Nose, Throat Exam: moist mucous membranes Neck Exam: normal inspection, non-tender, supple, full range of motion Respiratory Exam: normal breath sounds, lungs clear, airway intact, No chest tenderness, No respiratory distress Cardiovascular Exam: regular rate/rhythm, normal heart sounds, normal peripheral pulses Gastrointestinal/Abdomen Exam: soft, normal bowel sounds, No tenderness Rectal Exam: not done Back Exam: normal inspection, normal range of motion, No CVA tenderness, No vertebral tenderness Extremity Exam: normal inspection, normal range of motion, pelvis stable Neurologic Exam: alert, oriented x 3, cooperative, dial buffer II-XII nml as tested, normal mood/affect, nml cerebellar function, nml station & gait, sensation nml Skin Exam: laceration (0.5 cm well approximated laceration lateral aspect left eyebrow. No foreign body present.) SpO2 Interpretation: normal O2 Delivery: Room Air Procedures - Laceration/Wound Repair Left Lateral Face Time of Procedure: 18:50 Wound Location: Left, face (Lateral aspect left eyebrow) Wound Length (cm): 0.5 Wound's Depth, Shape: superficial, linear, into subcut Wound Explored: clean (No foreign body noted. Exploration was performed in a bloodless field to the base.) Irrigated: Yes Hibiclens Prep: Yes Wound Repaired With: Steri-strips, Dermabond - Course Nursing assessment & vital signs reviewed: Yes Ordered Tests: Active Orders 24 hr Category Date Time Status HEAD WITHOUT CONTRAST [CT] Stat Exams 09/09/22 19:10 Completed - Progress Progress: improved Progress Note: 09/09/22 20:30 Patient's medical history is 1 of low complexity. The level of complexity in the work-up performed is based on review of the patient's past medical history, review the patient's medication list, review of the patient's drug allergy list, history of present illness and physical findings on examination. The patient is to undergo CT scan of the head without contrast. I reviewed the results of the study. The radiologist read the study and I reviewed the radiologist interpretation. Patient has no acute intracranial abnormality. Patient will be transferred back to the half-way with instructions to continue his antiepileptic medication. Counseled pt/family regarding: diagnosis, need for follow-up, rad results Medical Desision Making - Diagnostic Testing Diagnostic test were ordered, analyzed, and reviewed by me: Yes Radiological Interpretation: Reviewed by me, Teleradiologist Report - Risk of complications Minimal Risk: Minimal risk of morbidity - Departure Departure Disposition: Fpc/Residential Clinical Impression: Breakthrough seizure, Laceration of left eyebrow Condition: Stable Critical Care Time: No Referrals: SUSAN COPELAND [Primary Care Provider] - Follow up/PCP as directed Additional Instructions: Keep laceration repair site dry for 24 hours. After 24 hours may wash the site daily. Blot dry use a hairdryer. Leave the Steri-Strips in place until they fall off on their own.
[2022-09-09 18:26] VITALS: O2SAT 99
--- NOTE | 2022-09-09 20:14 | XRAY ---
CLINICAL HISTORY:Seizure; COMPARISON:08/25/2022; TECHNIQUES:Axial non-contrast CT scan of the brain was performed from the skull base to the high parietal region. CTDI: 53.92 mGy, DLP: 1016.25 mGy*cm; FINDINGS: The visualized brain parenchyma shows a normal appearance. No focal parenchymal abnormalities are demonstrated. Jauregui-white matter differentiation is maintained. No midline shifts or deformity. No intracerebral or extra axial hematoma. Normal size and configuration of the cerebral ventricles. Normal CT appearance of the posterior fossa structures namely the cerebellar hemispheres, brainstem and cerebellar peduncles. The IACs are unremarkable. The cerebellum-pontine angles are clear. The pituitary gland, the pineal gland, the optic chiasm is unremarkable. The osseous structures in the skull base are unremarkable. No definite calvarium fractures. Scanned paranasal sinuses are clear. Coarse calcifications in the left eyeball. IMPRESSION: 1. Unremarkable non-enhanced CT study for the brain. 2. Stable findings when compared with prior study. Electronically Signed by: Tayler Raines MD. (09/09/2022 19:09:04 ICT DEVELOPMENT MANAGER)
[2022-09-09 20:42] VITALS: BP 143/84; PULSE 104
== END 2022-09-09 20:38 | disposition home or self-care (01) ==
LOC: ED 18:12 → EEVIPCON 18:12 → ED 20:38
DX: S01.112A Laceration without foreign body of left eyelid and periocular area, initial encounter (principal); W18.30XA Fall on same level, unspecified, initial encounter; Y92.143 Cell of prison as the place of occurrence of the external cause; G40.909 Epilepsy, unspecified, not intractable, without status epilepticus; Z79.899 Other long term (current) drug therapy
CPT/HCPCS: 12011; 70450; 99282

== ENCOUNTER 2022-10-23 17:03 | Emergency (ER) | payer OTHER ==
[2022-10-23 17:16] VITALS: TEMP 98.8
[2022-10-23] MEDS ORDERED: Sodium Chloride 0.9% 1000 ML 1,000 ML IV STA (17:28)
[2022-10-23] MEDS ORDERED: Sodium Chloride 0.9% 1000 ML 1,000 ML ONE (17:31)
--- NOTE | 2022-10-23 17:39 | ERPHSYRPT ---
- History of Present Illness Source: patient, police Exam Limitations: no limitations Patient Subjective Stated Complaint: Seizure activity. Patient's cellmate reports seizure activity from this patient. EMS states patient did not have any active seizure activity in their presence. Patient with a known history of seizures. Triage Nursing Assessment: Patient brought into the ER by ambulance. He is awake and alert; no confusion noted at this time but EMS report some sluggish responses and confusion to events once on scene. Patient does not remember the reported seizure. STEINBERG WNL. Side rails to bed are padded. Timing/Duration: today Character of Deficits: none Deficits: no difficulties Baseline/Normal Cognition: alert oriented x 3 Current Cognition: alert oriented x 3 Associated Symptoms: confusion Hx Tetanus, Diphtheria Vaccination/Date Given: Yes Hx Influenza Vaccination/Date Given: Yes Hx Pneumococcal Vaccination/Date Given: No Immunizations Up to Date: Yes <ALANNA CARRILLO - Last Filed: 10/23/22 19:06> <BREANNE MICHEL - Last Filed: 10/23/22 20:50> - History of Present Illness Time Seen by Provider: 10/23/22 17:37 Physician History: Seizure activity. Patient's cellmate reports seizure activity from this patient. EMS states patient did not have any active seizure activity in their presence. Patient with a known history of seizures.Patient does not remember the reported seizure (LORENA,ALANNA) Allergies/Adverse Reactions: No Known Drug Allergies Allergy (Verified 10/23/22 17:05) Travel Risk - International Travel Have you traveled outside of the country in past 3 weeks: No - Coronavirus Screening Are you exhibiting any of the following symptoms?: No Close contact with a COVID-19 positive Pt in past 14-21 Days: No - Vaccine Status Have you recieved a Covid-19 vaccination: Yes Information Security Consultant: Unknown - Vaccination Dates Dates if Unknown: ? <LORENAALANNA - Last Filed: 10/23/22 19:06> - Review of Systems Constitutional: No Fever, No Chills Eyes: No Symptoms Ears, Nose, & Throat: No Symptoms Respiratory: No Cough, No Dyspnea Cardiac: No Chest Pain, No Edema, No Syncope Abdominal/Gastrointestinal: No Abdominal Pain, No Nausea, No Vomiting, No Diarrhea Genitourinary Symptoms: No Dysuria Musculoskeletal: No Back Pain, No Neck Pain Skin: No Rash Neurological: Seizure, No Dizziness, No Focal Weakness, No Sensory Changes Psychological: No Symptoms Endocrine: No Symptoms All Other Systems: Reviewed and Negative < - Last Filed: 10/23/22 19:06> - Past Medical History Pertinent Past Medical History: Yes Neurological History: Epilepsy, Seizures ENT History: No Pertinent History Cardiac History: No Pertinent History Respiratory History: No Pertinent History Endocrine Medical History: No Pertinent History Musculoskeletal History: No Pertinent History GI Medical History: No Pertinent History History: No Pertinent History Psycho-Social History: No Pertinent History Male Reproductive Disorders: No Pertinent History Other Medical History: blind in left eye - Past Surgical History Past Surgical History: No Neuro Surgical History: No Pertinent History Cardiac: No Pertinent History Respiratory: No Pertinent History Gastrointestinal: No Pertinent History Genitourinary: No Pertinent History Musculoskeletal: No Pertinent History Male Surgical History: No Pertinent History Other Surgical History: Had a procedure to his left eye as a child (5 years old) but is unsure of the name of the procedure - Social History Smoking Status: Former smoker How long have you smoked: 9 years Exposure to second hand smoke: No Drug Use: none Patient Lives Alone: No ([facility]) < - Last Filed: 10/23/22 19:06> - Pegram Coma Scale Best Eye Response (Lawanda): (4) open spontaneously Best Verbal Response (Lawanda): (5) oriented Best Motor Response (Pegram): (6) obeys commands Lawanda Total: 15 - Physical Exam General Appearance: no apparent distress, alert Eye Exam: bilateral eye: PERRL, EOMI Ears, Nose, Throat Exam: normal ENT inspection, moist mucous membranes Neck Exam: normal inspection, non-tender, supple Respiratory: normal breath sounds, lungs clear, airway intact, No respiratory distress Cardiovascular: regular rate/rhythm, No edema Gastrointestinal: soft, No tenderness, No distention Back Exam: normal inspection Extremity Exam: normal inspection, No pedal edema 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, 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 x 3 mold dresser Exam: tongue midline Coordination/Gait: normal finger to nose, normal gait Skin Exam: normal color, warm, dry, No rash SpO2: 94 <LORENA - Last Filed: 10/23/22 19:06> - Nursing Vital Signs Nursing Vital Signs: Initial Vital Signs Pulse Rate 99 H 10/23/22 17:04 Respiratory Rate 7 L 10/23/22 17:04 Blood Pressure 120/61 10/23/22 17:04 O2 Sat by Pulse Oximetry 96 10/23/22 17:04 Pain Scale Pain Intensity 0 - Course Nursing assessment & vital signs reviewed: Yes <LORENA,ALANNA - Last Filed: 10/23/22 19:06> Ordered Tests: Active Orders 24 hr Category Date Time Status HEAD WITHOUT CONTRAST [CT] Stat Exams 10/23/22 17:28 Completed CBC W DIFF Stat Lab 10/23/22 17:41 Completed CMP Stat Lab 10/23/22 17:41 Completed UA W/RFX UR CULTURE Stat Lab 10/23/22 18:09 Completed Urine Triage Profile Stat Lab 10/23/22 18:09 Completed Medication Summary Discontinued Medications Generic Name Dose Route Start Last Admin Trade Name Amari PRN Reason Stop Dose Admin Sodium Chloride 1,000 mls @ 999 mls/hr 10/23/22 17:28 10/23/22 18:34 Sodium Chloride 0.9% 1000 Ml IV 10/23/22 18:28 Infused .Q1H1M STA Infusion Sodium Chloride Confirm 10/23/22 17:31 Sodium Chloride 0.9% 1000 Ml Administered 10/23/22 17:32 Dose 1,000 mls @ ud .ROUTE .[facility] Lab/Rad Data: Laboratory Result Diagrams 10/23/22 17:41 10/23/22 17:41 Laboratory Results 10/23/22 10/23/22 10/23/22 Range/Units 18:09 18:09 17:41 WBC (4.0-10.5) x10^3/uL RBC (4.1-5.6) x10^6/uL Hgb (12.5-18.0) g/dL Hct (42-50) % MCV (78-100) fL MCH (26-32) pg MCHC (32-36) g/dL RDW (11.5-14.0) % Plt Count (150-450) x10^3/uL MPV (7.5-11.0) fL Gran % (36.0-66.0) % Immature Gran % (Auto) (0.00-0.4) % Nucleat RBC Rel Count (0.00-0.1) % Eos # (Auto) (0-0.5) x10^3/uL Immature Gran # (Auto) (0.00-0.03) x10^3u/L Absolute Lymphs (auto) (1.0-4.6) x10^3/uL Absolute Monos (auto) (0.0-1.3) x10^3/uL Absolute Nucleated RBC (0.00-0.01) x10^3u/L Lymphocytes % (24.0-44.0) % Monocytes % (0.0-12.0) % Eosinophils % (0.00-5.0) % Basophils % (0.0-0.4) % Absolute Granulocytes (1.4-6.9) x10^3/uL Basophils # (0-0.4) x10^3/uL Sodium 138 (137-145) mmol/L Potassium 4.3 (3.5-5.1) mmol/L Chloride 101 (98-107) mmol/L Carbon Dioxide 26 (22-30) mmol/L Anion Gap 16.1 H (5-15) MEQ/L BUN 17 (9-20) mg/dL Creatinine 0.95 (0.66-1.25) mg/dL Estimated GFR > 60.0 ML/MIN Glucose 117 H (74-106) mg/dL Calcium 8.8 (8.4-10.2) mg/dL Total Bilirubin 1.00 (0.2-1.3) mg/dL AST 23 (17-59) U/L ALT 20 (0-50) U/L Alkaline Phosphatase 67 (38-126) U/L Serum Total Protein 6.9 (6.3-8.2) g/dL Albumin 4.4 (3.5-5.0) g/dL Urine Color Yellow (Yellow) Urine Appearance Clear (Clear) Urine pH 6.0 (4.6-8.0) Ur Specific Mckittrick 1.015 (1.005-1.030) Urine Protein Trace A (Negative) Urine Glucose (UA) Negative (Negative) mg/dL Urine Ketones Trace A (Negative) Urine Blood Negative (Negative) Urine Nitrite Negative (Negative) Urine Bilirubin Negative (Negative) Urine Urobilinogen 0.2 (0.2) mg/dL Ur Leukocyte Esterase Negative (Negative) U Hyaline Cast (Auto) NONE SEEN (0-2) /LPF Urine Microscopic RBC 0-2 (0-5) /HPF Urine Microscopic WBC 0-2 (0-5) /HPF Ur Epithelial Cells None Seen (None Seen) /HPF Urine Bacteria None Seen (None Seen) /HPF Urine Culture Reflexed NO (NO) Urine Opiates Level NEGATIVE (NEGATIVE) Ur Methadone NEGATIVE (NEGATIVE) Urine Barbiturates NEGATIVE (NEGATIVE) Ur Phencyclidine (PCP) NEGATIVE (NEGATIVE) Urine Amphetamine NEGATIVE (NEGATIVE) U Benzodiazepine Level NEGATIVE (NEGATIVE) Urine Cocaine NEGATIVE (NEGATIVE) Urine Marijuana (THC) NEGATIVE (NEGATIVE) 10/23/22 Range/Units 17:41 WBC 6.8 (4.0-10.5) x10^3/uL RBC 4.74 (4.1-5.6) x10^6/uL Hgb 14.2 (12.5-18.0) g/dL Hct 42.3 (42-50) % MCV 89.2 (78-100) fL MCH 30.0 (26-32) pg MCHC 33.6 (32-36) g/dL RDW 12.2 (11.5-14.0) % Plt Count 167 (150-450) x10^3/uL MPV 10.0 (7.5-11.0) fL Gran % 75.2 H (36.0-66.0) % Immature Gran % (Auto) 0.3 (0.00-0.4) % Nucleat RBC Rel Count 0.0 (0.00-0.1) % Eos # (Auto) 0.12 (0-0.5) x10^3/uL Immature Gran # (Auto) 0.02 (0.00-0.03) x10^3u/L Absolute Lymphs (auto) 1.14 (1.0-4.6) x10^3/uL Absolute Monos (auto) 0.35 (0.0-1.3) x10^3/uL Absolute Nucleated RBC 0.00 (0.00-0.01) x10^3u/L Lymphocytes % 16.8 L (24.0-44.0) % Monocytes % 5.2 (0.0-12.0) % Eosinophils % 1.8 (0.00-5.0) % Basophils % 0.7 (0.0-0.4) % Absolute Granulocytes 5.09 (1.4-6.9) x10^3/uL Basophils # 0.05 (0-0.4) x10^3/uL Sodium (137-145) mmol/L Potassium (3.5-5.1) mmol/L Chloride (98-107) mmol/L Carbon Dioxide (22-30) mmol/L Anion Gap (5-15) MEQ/L BUN (9-20) mg/dL Creatinine (0.66-1.25) mg/dL Estimated GFR ML/MIN Glucose (74-106) mg/dL Calcium (8.4-10.2) mg/dL Total Bilirubin (0.2-1.3) mg/dL AST (17-59) U/L ALT (0-50) U/L Alkaline Phosphatase (38-126) U/L Serum Total Protein (6.3-8.2) g/dL Albumin (3.5-5.0) g/dL Urine Color (Yellow) Urine Appearance (Clear) Urine pH (4.6-8.0) Ur Specific Mckittrick (1.005-1.030) Urine Protein (Negative) Urine Glucose (UA) (Negative) mg/dL Urine Ketones (Negative) Urine Blood (Negative) Urine Nitrite (Negative) Urine Bilirubin (Negative) Urine Urobilinogen (0.2) mg/dL Ur Leukocyte Esterase (Negative) U Hyaline Cast (Auto) (0-2) /LPF Urine Microscopic RBC (0-5) /HPF Urine Microscopic WBC (0-5) /HPF Ur Epithelial Cells (None Seen) /HPF Urine Bacteria (None Seen) /HPF Urine Culture Reflexed (NO) Urine Opiates Level (NEGATIVE) Ur Methadone (NEGATIVE) Urine Barbiturates (NEGATIVE) Ur Phencyclidine (PCP) (NEGATIVE) Urine Amphetamine (NEGATIVE) U Benzodiazepine Level (NEGATIVE) Urine Cocaine (NEGATIVE) Urine Marijuana (THC) (NEGATIVE) - Progress Progress: improved Counseled pt/family regarding: lab results, diagnosis, need for follow-up, rad results <BREANNE MICHEL - Last Filed: 10/23/22 20:50> - Progress Progress Note: 10/23/22 20:48 27 years old is checked out to me at shift change from with pending CT head. Plan was to discharge if negative CT head. Patient presented with seizure witnessed by his cellmate. Patient does have history of seizures. Baseline lab work unremarkable. Patient is back to his baseline during my evaluation. Nonfocal neuro exam. CT head is negative. Patient is being discharged back to custodial and recommended continue with his medication and outpatient follow-up. Discussed signs symptoms of worsening needing return to ER which he seems understanding. (BREANNE MICHEL) Medical Desision Making - Independent Historian Additional History obtained from: Executive Talent Acquisition Consultant/EMT - Diagnostic Testing Diagnostic test were ordered, analyzed, and reviewed by me: Yes Radiological Interpretation: Reviewed by me <BREANNE MICHEL - Last Filed: 10/23/22 20:50> <ALANNA CARRILLO - Last Filed: 10/23/22 19:06> - Departure Departure Disposition: [facility]/Half-Way Critical Care Time: No <BREANNE MICHEL - Last Filed: 10/23/22 20:50> - Departure Clinical Impression: Epileptic seizure Condition: Stable Referrals: SUSAN COPELAND [Primary Care Provider] - Follow up with PCP 1 day Instructions: Seizures, Adult (DC) Additional Instructions: Continue with your seizure medications. Follow seizure precautions. Follow-up with your primary care neurologist for reevaluation. Return to ER for any worsening/repeated seizure, altered mental status/confusion etc.
[2022-10-23 17:44] LABS: Absolute Neutrophil Ct (ANC) 5.09 x10^3/uL (1.4-6.9); BASOPHIL % 0.7 % (0.0-0.4); Basophil (Absolute #) 0.05 x10^3/uL (0-0.4); Eosinophil % 1.8 % (0.00-5.0); Eosinophil (Absolute #) 0.12 x10^3/uL (0-0.5); Hematocrit 42.3 % (42-50); Hemoglobin 14.2 g/dL (12.5-18.0); IMMATURE GRAN # 0.02 x10^3u/L (0.00-0.03); IMMATURE GRAN % 0.3 % (0.00-0.4); Lymphocyte (Absolute #) 1.14 x10^3/uL (1.0-4.6); Lymphocytes % 16.8 % (24.0-44.0); Mean Cell Volume 89.2 fL (78-100); Mean Corpuscular Hgb Concent. 33.6 g/dL (32-36); Monocyte (Absolute #) 0.35 x10^3/uL (0.0-1.3); Monocytes % 5.2 % (0.0-12.0); Neutrophil % 75.2 % (36.0-66.0); Platelet Count 167 x10^3/uL (150-450); Red Blood Count 4.74 x10^6/uL (4.1-5.6); Red Cell Distribution Width 12.2 % (11.5-14.0); White Blood Count 6.8 x10^3/uL (4.0-10.5)
[2022-10-23 17:54] LABS: ALBUMIN 4.4 g/dL (3.5-5.0); ALKALINE PHOSPHATASE 67 U/L (38-126); ANION GAP 16.1 MEQ/L (5-15); BLOOD UREA NITROGEN 17 mg/dL (9-20); CHLORIDE 101 mmol/L (98-107); Calcium 8.8 mg/dL (8.4-10.2); Carbon Dioxide 26 mmol/L (22-30); Creatinine 1 0.95 mg/dL (0.66-1.25); EST GLOMERULAR FILTRATION RATE > 60.0 ML/MIN; Glucose 117 mg/dL (74-106); Potassium 4.3 mmol/L (3.5-5.1); SGOT/AST 23 U/L (17-59); SGPT/ALT 20 U/L (0-50); SODIUM 138 mmol/L (137-145); Total Protein 6.9 g/dL (6.3-8.2)
[2022-10-23 18:20] LABS: Appearance Clear (Clear); Bacteria None Seen /HPF (None Seen); Bilirubin Negative (Negative); Blood Negative (Negative); Epithelial Cells None Seen /HPF (None Seen); Glucose, Urine Negative (Negative); Hyaline Casts NONE SEEN /LPF (0-2); Ketones Trace (Negative); Leukocyte Esterase Negative (Negative); Nitrite Negative (Negative); Protein,Urine Dip Trace (Negative); RBC 0-2 /HPF (0-5); Specific Gravity 1.015 (1.005-1.030); Urobilinogen 0.2 mg/dL (0.2); WBC 0-2 /HPF (0-5)
[2022-10-23 18:31] LABS: Amphetamine,Urine NEGATIVE (NEGATIVE); Barbiturate,Urine NEGATIVE (NEGATIVE); Benzodiazepine,Urine NEGATIVE (NEGATIVE); Cocaine,Urine NEGATIVE (NEGATIVE); Methadone,Urine NEGATIVE (NEGATIVE); Opiate,Urine NEGATIVE (NEGATIVE); PCP,Urine NEGATIVE (NEGATIVE); THC,Urine NEGATIVE (NEGATIVE)
[2022-10-23 18:39] LABS: ADD URINE CULTURE? NO (NO)
[2022-10-23 20:17] VITALS: RESP 18
--- NOTE | 2022-10-23 20:47 | XRAY ---
CLINICAL HISTORY:seizure activity COMPARISON:CT scan of the brain dated 09/09/2022. TECHNIQUE:Axial non-contrast CT scan of the brain was performed from the skull base to the high parietal region. FINDINGS: The visualized brain parenchyma shows a normal appearance. No focal parenchymal abnormalities are demonstrated. Jauregui-white matter differentiation is maintained. No midline shifts or deformity. No intracerebral or extra axial hematoma. Normal size and configuration of the cerebral ventricles. Normal CT appearance of the posterior fossa structures namely the cerebellar hemispheres, brainstem, and cerebellar peduncles. The IACs are unremarkable. The cerebellum-pontine angles are clear. The pituitary gland, the pineal gland, the optic chiasm is unremarkable. The osseous structures in the skull base are unremarkable. No definite calvarium fractures. The scanned paranasal sinuses are clear. Coarse calcifications in the left eyeball. IMPRESSION: 1. Unremarkable non-enhanced CT study for the brain 2. Stable findings when compared with prior study Electronically Signed by: Tayler Raines MD. (10/23/2022 19:45:44 [employer] PL[employer]ER)
[2022-10-23 20:54] VITALS: BP 120/79; PULSE 89; O2SAT 100
== END 2022-10-23 21:01 | disposition home or self-care (01) ==
LOC: ED 17:03
DX: G40.909 Epilepsy, unspecified, not intractable, without status epilepticus (principal)
CPT/HCPCS: 36415; 70450; 80053; 80307; 81001; 84146; 85025; 99284